=== PATIENT | female | born 2005 | race Caucasian/White ===

== ENCOUNTER 2024-10-15 | Emergency (ER) | payer BC, OTHER, SELFPAY ==
[2024-10-15 00:09] VITALS: BP 146/71
[2024-10-15 00:13] VITALS: BP 112/46
--- NOTE | 2024-10-15 00:55 | ED.GENMED ---
History of Present Illness
General
Chief Complaint: Dizziness
Source: patient and family
Exam Limitations: none
Time Seen by Provider: 10/15/24 00:50
Nursing documentation reviewed up to this point in time: agreed with
History of Present Illness
History of Present Illness:
Pleasant 19-year-old female presents with shortness of breath abdominal pain nausea vomiting and dizziness that started 2 hours prior to arrival. She states that during this timeframe, she had numbness and tingling in her bilateral hands. She
reports that her abdominal pain is still present. It does not radiate. Patient states that the pain is diffuse across her abdomen but does report some upper abdominal pain
Review of Systems
Review of Systems
Allergies reviewed?: Yes
Other source history: family
All Other Systems: ROS reviewed and negative except as documented in HPI and ROS
Constitutional: Reports no symptoms
EENT: Reports no symptoms
Respiratory: Reports no symptoms
Cardiac: Reports no symptoms
ABD/GI: Reports abdominal pain, nausea and vomiting; Denies diarrhea
: Reports no symptoms
Musculoskeletal: Reports no symptoms
Skin: Reports no symptoms
Neurological: Reports no symptoms
Endocrine: Reports no symptoms
Hematologic/Lymphatic: Reports no symptoms
Psychiatric: Reports no symptoms
Phy Exam
General Physical Exam
General Presentation: well appearing and no apparent distress
General Skin: warm and dry
General Habitus: normal
General Mental: alert
General Hydration: appears well hydrated
ENT Exam
ENT Exam: EOMI, pharynx normal, neck supple and normocephalic
Eye Exam
Eye Exam: PERRL, cornea clear and conjunctiva normal
Cardiovascular Exam
Cardiovascular Exam: regular rate/rhythm, no edema, no murmur and normal peripheral pulses
Pulmonary Exam
Pulmonary Exam: lungs clear, no respiratory distress, no rales, no crackles, no rhonchi, no stridor, no wheezing and no cough
Gastrointestinal Exam
Gastrointestinal Exam: normal bowel sounds, soft, no organomegaly, no pulsatile mass and non distended
Palpation: left upper quadrant: Minimal tenderness and right upper quadrant: Minimal tenderness
Neurological Exam
Neurological Exam: alert, oriented x3, no motor deficits and speech normal
Musculoskeletal Exam
Musculoskeletal Exam: full ROM and no edema
Skin Exam
Skin Exam: normal color, warm/dry, no rash and no petechia
Psychiatric Exam
Psychiatric Exam: normal mood/affect
Course
Orders/Labs/Results
Orders:
Orders
10/15/24 00:09
EKG [Electrocardiogram (*1)] Urgent
Reason for Study: Tachycardia
10/15/24 00:10
EKG- Treatment ONCE
10/15/24 00:12
Test Result ONCE
10/15/24 00:51
Complete Blood Count/With Diff Urgent
Comprehensive Metabolic Panel Urgent
HCG, Serum Qualitative Screen Urgent
Lipase Urgent
Comment: ADDED
10/15/24 00:54
HYDROmorphone [Dilaudid] 0.5 mg IV NOW STA
Ondansetron Injectable [Zofran] 4 mg IV NOW STA
10/15/24 00:57
Troponin I Urgent
10/15/24 01:32
Add On- LAB Urgent
Tests Added?: lipase
10/15/24 01:37
CT Abd/pelvis W Iv Cont Urgent
Comment:
Reason For Exam: diffuse abd pain
Abnormal Lab Results
10/15/24
00:51
WBC 11.3 H 10^3/uL
(4.8-10.8)
RBC 5.69 H 10^6/uL
(4.20-5.40)
Hgb 11.4 L g/dL
(12.0-16.0)
Hct 35.7 L %
(37.0-47.0)
MCV 62.7 L fL
(81.0-99.0)
MCH 20.0 L pg
(27.0-31.0)
MCHC 31.9 L g/dL
(33.0-37.0)
RDW 16.2 H %
(11.5-14.5)
Abs Immat Gran (auto) 0.1 H 10^3/uL
(0-0.05)
Absolute Neuts (auto) 9.0 H 10^3/uL
(1.4-6.5)
Immature Gran % 0.6 H %
(0-0.5)
Neutrophils % 79.5 H %
(42.2-75.2)
Lymphocytes % 13.8 L %
(20.5-51.1)
Carbon Dioxide 21 L mmol/L
(22-30)
BUN 20 H mg/dl
(7-17)
Glucose 107 H mg/dl
(70-99)
Calcium 10.9 H mg/dl
(8.4-10.2)
10/15/24 00:51
10/15/24 00:51
Vital Signs
Initial and Last Documented VS:
Initial Vital Signs
Pulse Resp BP Pulse Ox
107 24 146/71 90
10/15/24 00:09 10/15/24 00:09 10/15/24 00:09 10/15/24 00:09
Last Documented Vital Signs
Temp Pulse Resp BP Pulse Ox
98.5 F 74 16 139/97 97
10/15/24 05:58 10/15/24 05:45 10/15/24 05:45 10/15/24 02:32 10/15/24 02:00
*Critical Care Note
Total Time (30-74mins, 75-104mins- exclusive of procedures): Not Applicable
Update Note
Update Note:
CT abdomen and pelvis with IV contrast
IMPRESSION:
Fluid-filled loops of proximal small bowel, measuring up to 2.5 cm, with borderline wall thickening, moderate mesenteric congestion, and small volume free fluid. This may represent an enteritis. The distal small bowel is relatively decompressed.
Although no transition point is seen, cannot exclude partial small bowel obstruction. No pneumatosis or free air.
Right kidney is absent. No left-sided hydronephrosis or nephrolithiasis.
Discussed CAT scan findings with the patient and family. At this time patient is feeling much better. I did discuss the possibility of a small bowel obstruction. Patient wishes to be discharged to home. I discussed return to ER instructions with
patient and family. I feel that they have good understanding of said discharge instructions as well as good understanding of the possible diagnosis of SBO. I feel that they will return as needed.
Patient was able to tolerate liquids. We observed her for several hours. At this point she wishes to be discharged home. She reports no abdominal pain or tenderness at this time.
ED Attending Note
-
Portions of this chart may have been created with voice recognition software.� Occasional wrong word or��sound alike� substitutions may have occurred due to the inherent limitations of voice recognition software.
Discharge Plan
Departure
Patient Disposition: Home (Routine Discharge)
Date of Disposition: 10/15/24
Time of Disposition: 05:40
Patient with high blood pressure during this ER visit?: Yes
Condition: Good
Discharge Problem:
Abdominal pain
Instructions: Abdominal pain in adults - Discharge instructions, BLOOD PRESSURE
Prescriptions:
No Action
No Current Medications
0
Referrals:
Sonido Montes De Oca Jr [Other]
NONE,* [Family Provider] -
Activity Restrictions/Additional Instructions:
It was a pleasure meeting you and taking part in your care. We hope for your continued healing and wellness.
Please read discharge instructions in their entirety. However, they are for general education and may not describe your exact diagnosis at discharge. Information on your ER visit and medical conditions were discussed with you along with appropriate
follow up information...
If indicated, please take your medications as instructed and indicated on discharge paperwork.
Please schedule a follow up appointment as directed. Call to schedule an appointment
Please return to the emergency department with ANY change in, persisting, or worsening of symptoms. If any of your symptoms do not improve, or persist, or become more severe within 6-12 hours, please return to the emergency department for further
care.
Please return to the emergency department if you develop a headache, neck pain/stiffness, fever greater than 100.4F, chest pain, shortness of breath, persistent nausea, vomiting, slurred speech, difficulty walking, numbness/tingling, weakness, signs
of infection or any other symptoms that are worrisome to you.
If you have any questions or concerns please do not hesitate to call the Hospital at or E-mail me directly at [email or web address]
Interventions
Interventions:
*Risk Screen - Suicide Last Done: 10/15/24 00:03
*General Assessment Last Done: 10/15/24 00:03
*Neglect/Abuse Screening Last Done: 10/15/24 02:00
ED- Fall Risk Assessment Last Done: 10/15/24 05:59
*ED COVID-19 Vaccine History Last Done: 10/15/24 00:03
*Nursing Disposition Last Done: 10/15/24 06:00
ED- Neurological Assessment Last Done: 10/15/24 00:53
ED- Cardiac Assessment Last Done: 10/15/24 06:00
ED Swallowing Screen Last Done: 10/15/24 00:52
Discharge Date and Time
Discharge Date/Time: 10/15/24 06:25
Print Language: KAZAKH
[2024-10-15 01:00] LABS: % Basophils 0.4 % (0-2); % Eosinophils 0.5 % (0-6); % Immature Granulocytes 0.6 % (0-0.5); % Lymphocytes 13.8 % (20.5-51.1); % Monocytes 5.2 % (1.7-9.3); % Neutrophils 79.5 % (42.2-75.2); Absolute Basophils 0.1 10^3/uL (0-0.2); Absolute Eosinophils 0.1 10^3/uL (0-0.7); Absolute Immature Granulocytes 0.1 10^3/uL (0-0.05); Absolute Lymphocytes 1.6 10^3/uL (1.2-3.4); Absolute Monocytes 0.6 10^3/uL (0.1-0.6); Hematocrit 35.7 % (37.0-47.0); Hemoglobin 11.4 g/dL (12.0-16.0); Mean Corp Hgb Conc. 31.9 g/dL (33.0-37.0); Mean Corpuscular Volume 62.7 fL (81.0-99.0); Mean Platelet Volume 9.9 fL (7.4-10.4); Nucleated Red Blood Cells % 0 %; Platelet Count 376 10^3/uL (130-400); Red Blood Cell Count 5.69 10^6/uL (4.20-5.40); Red Cell Dist. Width 16.2 % (11.5-14.5); White Blood Cell Count 11.3 10^3/uL (4.8-10.8)
[2024-10-15] MEDS: DILAUDID 0.5 MG IV (01:00)
[2024-10-15] MEDS: ZOFRAN 4 MG IV (01:00)
[2024-10-15 01:16] LABS: ALT (SGPT) 24 U/L (0-35); AST (SGOT) 31 U/L (14-36); Albumin 4.9 g/dl (3.5-5.0); Alkaline Phosphatase 84 U/L (38-126); Blood Urea Nitrogen 20 mg/dl (7-17); Calcium 10.9 mg/dl (8.4-10.2); Carbon Dioxide 21 mmol/L (22-30); Chloride 104 mmol/L (98-107); Glucose 107 mg/dl (70-99); HCG, Serum Qualitative Screen Negative; Potassium 3.8 mmol/L (3.5-5.1); Sodium 138 mmol/L (135-145); Total Bilirubin 0.7 mg/dl (0.2-1.3); eGFR > 60.00
[2024-10-15 01:29] LABS: Troponin I < 0.012 ng/ml
[2024-10-15 02:00] VITALS: BP 124/70
[2024-10-15 02:32] VITALS: BP 139/97
[2024-10-15 02:37] LABS: Lipase 121 U/L (23-300)
== END 2024-10-15 06:25 | disposition home or self-care (01) ==
LOC: EMR
PROVIDERS: EMERGENCY PHYSICIAN Student in an Organized Health Care Education/Training Program
DX: R10.9 Unspecified abdominal pain (principal); R03.0 Elevated blood-pressure reading, without diagnosis of hypertension
CPT/HCPCS: 99285; 96374; 96375; 74177; 80053; 83690; 84484; 84703; 85025; 93005; Q9967

== ENCOUNTER 2025-01-26 09:25 | Inpatient (IN) | payer BC, OTHER, SELFPAY ==
[2025-01-26] VITALS (13 sets, daily range): BP systolic 101–122; BP diastolic 58–78; BMI 23.7
--- NOTE | 2025-01-26 01:36 | EDRN ---
Pt's mother says pt was here in Sep with excruciating lower abd pain and had a CT. Pt was kept overnight for possible diverticulitis however pt felt better in 4 hours so it was not diverticulitis. Pt with hx ovarian cyst. Pain started early
evening and has gotten progressively worse. Pt had chills, nausea and vomiting. NO fever/cough, urinary symptoms, diarrhea/constipation. Last BM today, LMP couple weeks ago
[2025-01-26 01:53] LABS: % Basophils 0.6 % (0-2); % Eosinophils 0.5 % (0-6); % Immature Granulocytes 0.4 % (0-0.5); % Lymphocytes 18.6 % (20.5-51.1); % Monocytes 4.3 % (1.7-9.3); % Neutrophils 75.6 % (42.2-75.2); Absolute Basophils 0.1 10^3/uL (0-0.2); Absolute Lymphocytes 1.5 10^3/uL (1.2-3.4); Absolute Monocytes 0.4 10^3/uL (0.1-0.6); Absolute Neutrophils 6.2 10^3/uL (1.4-6.5); Hematocrit 33.6 % (37.0-47.0); Hemoglobin 11.1 g/dL (12.0-16.0); Mean Corpuscular Hgb 20.8 pg (27.0-31.0); Mean Corpuscular Volume 62.9 fL (81.0-99.0); Nucleated Red Blood Cells % 0 %; Platelet Count 350 10^3/uL (130-400); Red Blood Cell Count 5.34 10^6/uL (4.20-5.40); Red Cell Dist. Width 15.3 % (11.5-14.5); White Blood Cell Count 8.2 10^3/uL (4.8-10.8)
[2025-01-26] MEDS: NSS 1000 IV ×2 (01:57→04:41)
[2025-01-26] MEDS: ZOFRAN 4 MG IV ×3 (01:57→07:04)
[2025-01-26 02:08] LABS: HCG, Serum Qualitative Screen Negative
[2025-01-26 02:11] LABS: ALT (SGPT) 17 U/L (0-35); AST (SGOT) 29 U/L (14-36); Albumin 5.3 g/dl (3.5-5.0); Alkaline Phosphatase 65 U/L (38-126); Blood Urea Nitrogen 15 mg/dl (7-17); Calcium 10.8 mg/dl (8.4-10.2); Carbon Dioxide 19 mmol/L (22-30); Chloride 108 mmol/L (98-107); Estimated Creatinine Clearance 81 ml/min; Glucose 95 mg/dl (70-99); Lipase 109 U/L (23-300); Potassium 4.1 mmol/L (3.5-5.1); Sodium 142 mmol/L (135-145); Total Bilirubin 0.8 mg/dl (0.2-1.3); Total Protein 8.3 g/dl (6.3-8.2); eGFR > 60.00
--- NOTE | 2025-01-26 03:06 | EDRN ---
Pt complained of tingling in her fingers/hands. Pt hyperventilating, coached on breathing in through her nose and out through her mouth to slow her breathing.
[2025-01-26] MEDS: TORADOL 30 MG IV (03:41)
[2025-01-26] MEDS: DILAUDID 0.5 MG IV ×2 (04:39→07:04)
--- NOTE | 2025-01-26 06:16 | ED.GENMED ---
History of Present Illness
General
Chief Complaint: Abdominal Pain
Source: patient, family (Mother and father at bedside) and previous hospital records (ED visit for somewhat similar abdominal pain complaint in September this year)
Exam Limitations: none
Time Seen by Provider: 01/26/25 04:09
Nursing documentation reviewed up to this point in time: agreed with
History of Present Illness
History of Present Illness:
This is a 19-year-old female with history of Wilms tumor status post right nephrectomy as well as partial left nephrectomy. History of complex ovarian cyst requiring removal in the past.
She takes no medicines on a daily basis.
Last menstrual period 2 weeks ago, normal and on time.
She presents with somewhat abrupt onset of generalized mid abdominal pain that began approximately 2 hours prior to arrival, persistent, crampy in nature accompanied with nausea, dry heaves. She denies diarrhea and states she passed a normal bowel
movement earlier this evening.
She presented to this ED with very similar abdominal pain September of this year. CAT scan at that time showed enteritis but concern for small bowel obstruction. Abdominal pain resolved during ED evaluation and she was discharged to home without
return of pain until tonight.
Past History
Past History
ED Past Medical History: Cancer (Wilms tumor status post right nephrectomy, left partial nephrectomy) and Other (Ovarian cyst)
ED Past Surgical History: Gynecological (Ovarian cyst removal), Tonsilectomy and Urological (Right nephrectomy for Wilms tumor as well as left partial nephrectomy.)
Social History
Tobacco: Non-smoker
Alcohol: None
Drug: None
Personal: Single
Living: with family
Employment: Student
Family History
Family History: Other (Noncontributory)
Phy Exam
Physical Exam
Physical Exam:
GENERAL: 19-year-old female appears her stated age, awake and alert, pleasant, appears in no acute distress. Parents are accompanying.
EYE: anicteric
NECK: Supple, nontender, no meningismus, no significant adenopathy.
ENT: oral mucosa is moist. No rhinorrhea.
CARDIAC: Regular rate and rhythm. no murmur.
LUNGS: Clear breath sounds bilaterally, no acute respiratory distress, no wheezes/rales/rhonchi
ABDOMEN: Soft, nondistended, moderate tenderness generalized to the upper abdomen, right upper quadrant more so than left upper quadrant, mild tenderness mid abdomen. No appreciable tenderness to the lower abdomen. No r/g, no cvat. Hypoactive
bowel sounds.
NEUROLOGICAL: Alert and oriented x3, no focal neuro deficits.
SKIN: Warm and dry, normal color, skin intact. No rash.
MUSCULOSKELETAL: No C/C/E. peripheral pulses are full and equal b/l. No palpable tenderness.
PSYCH: Normal and appropriate interaction.
Course
Orders/Labs/Results
Orders:
Orders
01/26/25 01:38
IV Insert/Care/Rem.- Treatment PRN
01/26/25 01:39
Test Result ONCE
01/26/25 01:46
Complete Blood Count/With Diff Urgent
Comprehensive Metabolic Panel Urgent
HCG, Serum Qualitative Screen Urgent
Comment: Notify provider if positive test present
Lipase Urgent
01/26/25 01:54
Ondansetron Injectable [Zofran] 4 mg .ROUTE .STK-MED ONE
01/26/25 01:56
0.9% Sodium Chloride 1000 ml [Nss] 1,000 ml IV BOLUS
Ondansetron Injectable [Zofran] 4 mg IV NOW STA
01/26/25 02:50
Ondansetron Injectable [Zofran] 4 mg .ROUTE .STK-MED ONE
01/26/25 02:52
Ondansetron Injectable [Zofran] 4 mg IV NOW STA
01/26/25 03:32
Ketorolac [Toradol] 30 mg .ROUTE .STK-MED ONE
01/26/25 03:41
Ketorolac [Toradol] 30 mg IV NOW STA
01/26/25 04:29
0.9% Sodium Chloride 1000 ml [Nss] 1,000 ml IV 250 mls/hr
HYDROmorphone [Dilaudid] 0.5 mg IV NOW STA
01/26/25 04:32
CT Abd/pelvis W Iv Cont Urgent
Comment:
Reason For Exam: gen mid to upper abd pain, N/V
01/26/25 06:04
Urinalysis Reflex To Culture Urgent
Date Specimen was Collected: 01/26/25
Time Specimen was Collected: 06:02
Urine Microscopic Reflex Cult Urgent
Abnormal Lab Results
01/26/25 01/26/25
01:46 06:04
Hgb 11.1 L g/dL
(12.0-16.0)
Hct 33.6 L %
(37.0-47.0)
MCV 62.9 L fL
(81.0-99.0)
MCH 20.8 L pg
(27.0-31.0)
RDW 15.3 H %
(11.5-14.5)
Neutrophils % 75.6 H %
(42.2-75.2)
Lymphocytes % 18.6 L %
(20.5-51.1)
Chloride 108 H mmol/L
(98-107)
Carbon Dioxide 19 L mmol/L
(22-30)
Calcium 10.8 H mg/dl
(8.4-10.2)
Total Protein 8.3 H g/dl
(6.3-8.2)
Albumin 5.3 H g/dl
(3.5-5.0)
Urine Ketones 3+ A
(Negative)
Urine Albumin (Reflex) 1+ A
(Neg - Trace)
01/26/25 01:46
01/26/25 01:46
Vital Signs
Initial and Last Documented VS:
Initial Vital Signs
Temp Pulse Resp BP Pulse Ox
97.8 F 82 22 109/78 100
01/26/25 00:50 01/26/25 00:50 01/26/25 00:50 01/26/25 00:50 01/26/25 00:50
Last Documented Vital Signs
Temp Pulse Resp BP Pulse Ox
98.6 F 81 13 105/66 100
01/26/25 06:00 01/26/25 06:01 01/26/25 06:01 01/26/25 06:00 01/26/25 01:18
MDM/Problems Addressed
Differential Diagnosis Includes:
Concern for small bowel obstruction, gastroenteritis, cholecystitis, pancreatitis. Ovarian cyst is less likely.
Patient is much more comfortable after IV dose of Zofran and Toradol. She does continue with moderate tenderness to palpation primarily the upper abdomen. Will medicate for pain with IV Dilaudid and will check CT abdomen and pelvis.
Labs are unremarkable.
Chronic conditions affecting care: Previous abdomnial surgery (History of ovarian cyst removal as well as nephrectomy for Wilms tumor.) and Cancer (History of Wilms tumor status post right nephrectomy and partial left nephrectomy.)
*Radiology
Radiology exam reviewed: radiology read reviewed
*Pulse Oximetry
Patient hypoxic: no
*Critical Care Note
Total Time (30-74mins, 75-104mins- exclusive of procedures): Not Applicable
Update Note
Update Note:
06:55
Patient continues with moderate abdominal pain, crampy in nature. Nausea is now returning as well.
CAT scan shows small bowel obstruction with transition point in the right lower quadrant.
Will continue IV fluids, continue antiemetics and pain medications and will admit to hospitalist service.
ED Attending Note
-
Portions of this chart may have been created with voice recognition software.� Occasional wrong word or��sound alike� substitutions may have occurred due to the inherent limitations of voice recognition software.
Discharge Plan
Departure
Patient Disposition: Admit
Date of Disposition: 01/26/25
Time of Disposition: 06:52
Admit to: Med/Surg
Admit to doctor: hospitalist
Presentation/result/management discussed w/ accepting MD/DO: Hospitalist
Discharge Problem:
Small bowel obstruction
Prescriptions:
No Action
No Current Medications
0
Referrals:
UNKNOWN - PT DOES,NOT KNOW [Family Provider]
Interventions
Interventions:
*Risk Screen - Suicide Last Done: 01/26/25 00:50
*General Assessment Last Done: 01/26/25 01:35
*Neglect/Abuse Screening Last Done: 01/26/25 01:35
*ED- Fall Risk Assessment Last Done: 01/26/25 02:02
RF-Gnkwxg-Hjqftomzus Assessment Last Done: 01/26/25 02:02
Discharge Date and Time
Print Language: LIBERIAN
[2025-01-26 06:23] LABS: Urine Albumin 1+ (Neg - Trace); Urine Bilirubin Negative (Negative); Urine Character Clear (Clear); Urine Color Yellow; Urine Glucose Negative (Negative); Urine Ketone 3+ (Negative); Urine Leukocyte Negative (Negative); Urine Nitrite Negative (Negative); Urine Occult Blood Negative (Negative); Urine Urobilinogen Negative (Neg - 1+)
[2025-01-26 06:33] LABS: Urine Squamous Cell >30 /LPF (Few)
[2025-01-26 06:34] LABS: Urine Red Blood Cell None Seen /HPF (0-2); Urine White Cell 0-2 /HPF (0-5)
[2025-01-26 07:56] LABS: Iron 90 ug/dl (37-170)
--- NOTE | 2025-01-26 07:56 | HPS.HSE ---
Family Physician
-
Family Physician: NOT KNOW UNKNOWN - PT DOES
Chief Complaint
-
abd pain
History of Present Illness
19yo F with thalassemia, Hx of R nephrectomy 2/2 Wilms tumor @2007, ovarian cyst removal in 2018 came with abdominal pain, nausea and vomiting for 1 day, found SBO on CT. When seen in ED - no vomiting, abdomen not excessively tender, pain well
controlled with pain meds.
Medical History
Past Medical History
Past Medical History: Reports Other
Additional Past Medical History:
None
Past Surgical History: Reports Other
Additional Past Surgical History:
as above
Social History
Alcohol: None
Drug: None
Family History
Family History: Not pertinent
Allergies / Home Medications
Allergies reflects when Allergies were last updated in [employer].
Home Medications with original date entered in [employer]
Allergy/Medication List:
Allergies
Allergy/AdvReac Type Severity Reaction Status Date / Time
adhesive Allergy Unknown Verified 01/26/25 00:58
chlorprep Allergy Rash Uncoded 01/26/25 00:58
platelets Allergy Unknown Uncoded 01/26/25 00:58
Home Medications
No Meds [No Current Medications] 01/26/25
Review of Systems
-
History Source: Patient
A 12 point ROS was completed and negative except as noted: Yes
Abdomen/GI: Reports See HPI
Physical Exam
Vital Signs
Vital Signs
Temp Pulse Resp BP Pulse Ox
98.6 F 78 15 109/59 100
01/26/25 06:00 01/26/25 07:00 01/26/25 07:00 01/26/25 07:00 01/26/25 01:18
Physical Exam
General: Well Developed, No Apparent Distress and Comfortable
HEENT: NormoCephalic, Anicteric and Moist mucous membranes
Cardiac: S1/S2, Regular Rhythm and Tachycardia
GI: Soft, Non Tender and Non Distended; No Normal Bowel Sounds
Genito-urinary: No costovertebral tender
Skin: Warm; No Rash or Jaundice
Neuro: Awake, Alert, Oriented and AO x 3
Psych: Calm
Laboratory Results
-
01/26/25 01:46
01/26/25 01:46
Laboratory Results
Total Bilirubin 0.8 mg/dl (0.2-1.3) 01/26/25:46
AST 29 U/L (14-36) 01/26/25:46
ALT 17 U/L (0-35) 01/26/25 01:46
Alkaline Phosphatase 65 U/L (38-126) 01/26/25 01:46
Lipase 109 U/L (23-300) 01/26/25 01:46
Data Reviewed
-
CT Scan: Report Reviewed by me
Lab Data: Labs Reviewed by me
Impression/Plan
-
A/P:
#SBO
NPO and advance diet as tolerated, IVF while NPO
[facility] consult - defer need in NG to them as patient stopped vomiting at the time of admission and is ot in distress
Antiemetics
#Thalassemia
check iron panel
#Intrahepatic biliary duct dilation
outpatient GI: wide differential from physiologic to PBC, PSC - needs outpatient w/u
#complex ovarian cyst
#Physiologic fluid in pelvis 2/2 ruptured luteal cyst
[facility] as ooutpatient, US advised
#Hypercalcemia
most likely dehydration 2/2 vomiting
follow Ca
check PTH
DVT ppx SCDs
Full code
I have spent at least 79min reviewing chart, test results, communication with consultants and providing direct patient care
[2025-01-26 08:06] LABS: Percent Saturation 21 % (20-50); Total Iron Binding Capacity 423 ug/dl (265-497)
[2025-01-26 08:32] LABS: Ferritin 15.7 ng/ml (6.24-137)
[2025-01-26] MEDS: D5/0.45%NACL 1000 IV ×2 (10:47→19:29)
--- NOTE | 2025-01-26 11:53 | CON.GS ---
Addendum entered and electronically signed by Kalyan Palacios MD 01/26/25 12:51:
I saw and examined the patient independently.
The Gold Reclaimer's note was reviewed and I agree with the note, assessment and plan except where noted below.
Comment: This is a 19-year-old female with a history of a Wilms tumor status post right nephrectomy through a large upper transverse incision, ovarian cysts managed with a lap to open procedure in 2018 who presents with abdominal pain, nausea and
vomiting in the history of prior small bowel obstructions found to have similar on her CT scan without oral contrast. Still without return of bowel function but clinically stable, exam benign. Will manage her small bowel obstruction nonoperatively
for now.
N.p.o., IV fluids, replete electrolytes as needed.
Place NG tube if she has emesis.
Out of bed/ambulate
If still no return of bowel function we will plan for a small bowel follow-through on Tuesday.
All questions answered, patient and mother who is at bedside agreeable to plan of care above.
General surgery will continue to follow
Original Note:
Consultation
-
Date/Time Consultation Requested: 01/26/25 0728
Date/Time Consultation Performed: 01/26/25 1100
Requesting Provider: David
Performing Provider: Zhao Palacios
Reason for Consultation: SBO
Medical History
-
Chief Complaint: abdominal pain
History of Present Illness:
Ms Farley is a 19 yo female with a h/o Wilms tumor managed with right nephrectomy in 2004 and complex ovarian cysts managed operatively with a lap to open procedure in 2018 (LMP 2 weeks ago) who presented through the ED with cramping abdominal pain
with nausea and vomiting. She notes that she had a normal dinner last night but then vomited up this meal. She denies active nausea currently but abdominal pain does persist to the lower abdomen with tenderness and mild distention on exam. She
preented with similar but more mild symptoms in September with ?pSBO vs enteritis on Ct imaging at that time. She denies fevers or chills. She has not passed flatus since onset of pain.
Past Medical History
Past Medical History: Cancer (Wilms tumor managed surgically 2007) and Other (Thalassemia, SBO 09/2024)
Past Surgical History: Gynecological (Lap to open procedure for BL ovarian cysts 2017), Tonsilectomy and Urological (Right nephrectomy 2007)
Social History
Tobacco: Non-Smoker
Alcohol: None
Drug: None
Living: With Family
Family History
Family History: Reviewed & Not Pertinent
Allergies / Home Medications
Allergy/AdvReac Type Severity Reaction Status Date / Time
adhesive Allergy Rash Verified 01/26/25 09:42
chlorhexidine (From Allergy Rash Verified 01/26/25 09:41
ChloraPrep Clear)
isopropyl alcohol (From Allergy Rash Verified 01/26/25 09:41
ChloraPrep Clear)
platelets Allergy Unknown Uncoded 01/26/25 00:58
�Medication �Instructions �Recorded �Confirmed �Type
No Meds [No Current Medications] 01/26/25 01/26/25 History
Review of Systems
-
History Source: Patient and Family (mother at bedside)
All other systems: Negative unless noted
A 10 point review of systems was completed, and was negative except as per HPI.
Physical Exam
Vital Signs
Temp Pulse Resp BP Pulse Ox
98.0 F 111 18 119/76 98
01/26/25 09:55 01/26/25 09:55 01/26/25 09:55 01/26/25 09:55 01/26/25 09:55
01/25/25 01/26/25 01/27/25
06:59 06:59 06:59
Actual Weight 55 kg 55.111 kg
Body Mass Index (BMI) 23.7
Lab Results
01/26/25 01:46
01/26/25 01:46
WBC 8.2 10^3/uL (4.8-10.8) 01/26/25 01:46
Hgb 11.1 g/dL (12.0-16.0) L 01/26/25 01:46
Hct 33.6 % (37.0-47.0) L 01/26/25 01:46
Plt Count 350 10^3/uL (130-400) 01/26/25 01:46
Abs Immat Gran (auto) 0.0 10^3/uL (0-0.05) 01/26/25 01:46
Neutrophils % 75.6 % (42.2-75.2) H 01/26/25 01:46
Physical Exam
General: Well Developed and Well Nourished
HEENT: Moist Mucous Membranes
Respiratory: Non Labored Respirations
GI: Soft, Tender (moderate to right lower abd) and Distended (mild)
Skin: Warm and Dry
Neuro: Awake, Alert and AO x 3
Psych: Calm
Data Reviewed
-
CT Scan: Image Personally Visualized and interpreted, Report Reviewed by me, Discussed with Physician, Discussed with Patient and Discussed with Family
Labs: Labs Reviewed by me, Discussed with Physician, Discussed with Patient and Discussed with Family
Old Records: Reviewed
Assessment / Plan
-
Ms Farley is a 19 yo female with a h/o Wilms tumor managed with right nephrectomy in 2004 and complex ovarian cysts managed operatively with a lap to open procedure in 2018 (LMP 2 weeks ago), and ?pSBO 09/2024 who presented through the ED with
cramping abdominal pain with nausea and vomiting since last night. CT imaging without PO contrast reviewed with findings compatible with adhesive SBO with transition point in the distal ileum. Ovarian cysts noted. AFVSS. Pain still present but not
as severe with resolution of nausea.
Plan:
--Will follow with nonoperative measures for improvement at this time
--Continue NPO for bowel rest
--May need NGT placement if n/v recurs
--Analgesics/antiemetics prn
--OOB/Ambulate
--May require contrast study later this admission if symptoms don't continue to improve, will hold off for now
--- NOTE | 2025-01-26 14:47 | CM ---
CM met with pt and mother/Tracey bedside
Pt slept through meeting
Pt resides with her parents
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
She is primarily insured through her father's plan, has [address] as secondary
Pt is indep, no DMEs
PCP- none, pt follows with numerous speciality physicians including [facility] onc, cardio, and fertility
Rx- Sindy Oakes
Pt with SBO with non-operative management currently
Pt on precautions for hx VRE
Discharge Disposition- anticipate home no needs
--- NOTE | 2025-01-26 15:56 | PTCARENOTE ---
Pt admitted to room 2137 from ED with SBO. Pt able to walk into room unassisted. Pt has mother present. Admission and assessment done. Vitals stable. Pt with no N/V and no c/o of pain. New IV site placed. IVF hung- pt instructed to ring for
assistance.
--- NOTE | 2025-01-26 23:11 | PTCARENOTE ---
Patient denies nausea. Claims to have flatus pass more than once.
[2025-01-27] MEDS: D5/0.45%NACL 1000 IV (02:49)
[2025-01-27 06:58] LABS: Ionized Calcium 1.26 mMOL/L (1.15-1.33)
[2025-01-27 07:00] VITALS: BP 109/60
[2025-01-27 08:31] LABS: Hematocrit 27.7 % (37.0-47.0); Hemoglobin 8.8 g/dL (12.0-16.0); Mean Corp Hgb Conc. 31.8 g/dL (33.0-37.0); Mean Corpuscular Volume 66.1 fL (81.0-99.0); Red Blood Cell Count 4.19 10^6/uL (4.20-5.40); Red Cell Dist. Width 15.7 % (11.5-14.5)
[2025-01-27 08:44] LABS: ALT (SGPT) 10 U/L (0-35); AST (SGOT) 16 U/L (14-36); Albumin 3.5 g/dl (3.5-5.0); Alkaline Phosphatase 44 U/L (38-126); Blood Urea Nitrogen 7 mg/dl (7-17); Calcium 8.8 mg/dl (8.4-10.2); Carbon Dioxide 24 mmol/L (22-30); Chloride 114 mmol/L (98-107); Estimated Creatinine Clearance 81 ml/min; Glucose 94 mg/dl (70-99); Potassium 3.9 mmol/L (3.5-5.1); Sodium 141 mmol/L (135-145); Total Bilirubin 0.5 mg/dl (0.2-1.3); Total Protein 5.6 g/dl (6.3-8.2); eGFR > 60.00
[2025-01-27 08:45] LABS: % Basophils 0.8 % (0-2); % Eosinophils 2.6 % (0-6); % Immature Granulocytes 0.4 % (0-0.5); % Lymphocytes 51.6 % (20.5-51.1); % Monocytes 6.3 % (1.7-9.3); % Neutrophils 38.3 % (42.2-75.2); Absolute Eosinophils 0.1 10^3/uL (0-0.7); Absolute Lymphocytes 2.6 10^3/uL (1.2-3.4); Absolute Monocytes 0.3 10^3/uL (0.1-0.6); Absolute Neutrophils 1.9 10^3/uL (1.4-6.5); Nucleated Red Blood Cells % 0 %; Platelet Count 261 10^3/uL (130-400)
[2025-01-27 08:48] LABS: Acanthocytes Slight; Anisocytosis Slight; Hypochromasia 2+; Microcytosis 1+; Normal RBC Morphology No; Ovalocytes Slight
[2025-01-27 08:49] LABS: Tear Drop Red Blood Cells FEW
--- NOTE | 2025-01-27 09:10 | W.PN.GS2 ---
Today's Communication / Plan
-
Trial of clears
Assessment / Plan
-
19 yo female with a h/o Wilms tumor status post right nephrectomy through a large upper transverse incision, ovarian cysts managed with a lap to open procedure in 2018 who presents with abdominal pain, nausea and vomiting in the history of prior
small bowel obstructions found to have similar on her CT scan without oral contrast.
AFVSS
Anemia noted, unclear etiology.
Passing some flatus
--Trial of clears
--Anemic work up as per primary team
--Tentative SBFT tomorrow if does not continue to improve
Subjective Data
-
Date of Service: January 27, 2025
Patient seen and examined at bedside with Dr. Palacios. Mother at bedside. Denies n/v. Passing a little flatus. No BM's yet. LMP was 2 weeks ago and not overly heavy. No active bleeding has been noted.
Objective Data
-
Intake and Output
01/26/25 01/27/25 01/28/25
06:59 06:59 06:59
Intake Total 2300 / 2300
Balance 2300 / 2300
Intake:
IV fluids (Total) 0 / 2300
Other:
Number of approximated MODERATE 3
amounts of urine
Vital Signs
Temp Pulse Resp BP Pulse Ox
98.2 F 50 16 109/60 100
01/27/25 07:00 01/27/25 07:00 01/27/25 07:00 01/27/25 07:00 01/27/25 07:00
Lab Results
01/27/25 07:48
01/27/25 07:48
Calcium 8.8 mg/dl (8.4-10.2) D 01/27/25 07:48
Total Bilirubin 0.5 mg/dl (0.2-1.3) 01/27/25 07:48
AST 16 U/L (14-36) 01/27/25 07:48
ALT 10 U/L (0-35) 01/27/25 07:48
Alkaline Phosphatase 44 U/L (38-126) 01/27/25 07:48
Total Protein 5.6 g/dl (6.3-8.2) L D 01/27/25 07:48
Albumin 3.5 g/dl (3.5-5.0) D 01/27/25 07:48
Physical Exam
-
NAD
ABD soft, mildly distended, mild tenderness to the right
[2025-01-27 09:17] LABS: Reticulocyte Count 1.7 % (0.4-2.8)
--- NOTE | 2025-01-27 09:51 | W.PN.HOSP.TC ---
Addendum entered and electronically signed by Bobby Hernandez MD 01/27/25 10:10:
borderline iron studies - might be some component JOSEFINA, but it does not explain acute change
Original Note:
Today's Communication/Plan
-
See PN
Assessment / Plan
Assessment / Plan
19yo F with thalassemia, Hx of R nephrectomy and partial R nephrotomy 2/2 Wilms tumor @2007, ovarian cyst removal in 2018 came with abdominal pain, nausea and vomiting for 1 day, found SBO on CT. later started to resolve, abdominal pain subsided,
but patient developed anemia
A/P:
#SBO
NPO and advance diet as tolerated, IVF while NPO
[facility] consult - defer need in NG to them as patient stopped vomiting at the time of admission and is ot in distress
Antiemetics
#Thalassemia
#Acute anemia
Patient with no new or worsening abdominal tenderness, no periotenal signs, no c/o hematuria or blood in stool, black stools, not on her periods, no hemoptysis, normal bilirubin, no compensatory tachycaria and no hypotension
As per discussion with [facility] - reasonable to watch HGB, as can be 2/2 rehydration hemodilution
Obtain prior records from [facility]
check LDH, haptoglobin, retics,blood parasite screen, but normal bili indicates absence of significant hemolysis
Hematology consult
serial H&H
iron panel normal
#Intrahepatic biliary duct dilation
outpatient GI: wide differential from physiologic to PBC, PSC - needs outpatient w/u
#complex ovarian cyst
#Physiologic fluid in pelvis 2/2 ruptured luteal cyst
[employer] as outpatient, US advised
#Hypercalcemia
most likely dehydration 2/2 vomiting, rsolved with IVF
check PTH
DVT ppx SCDs
Full code
I have spent at least 59min reviewing chart, test results, communication with consultants and providing direct patient care
Anticipated Discharge: 24 - 48 hours
Subjective/Interval History
-
Date of Service: January 27, 2025
Objective Data
-
Labs:
Laboratory Results
01/27/25 01/27/25 01/27/25
06:37 07:48 12:00
WBC Cancelled 5.0
Hgb Cancelled 8.8 L D Pending
Hct Cancelled 27.7 L Pending
Plt Count Cancelled 261 D
Sodium Cancelled 141
Potassium Cancelled 3.9
Chloride Cancelled 114 H
Carbon Dioxide Cancelled 24
BUN Cancelled 7
Creatinine Cancelled 0.8
Glucose Cancelled 94
Calcium Cancelled 8.8 D
Total Bilirubin Cancelled 0.5
AST Cancelled 16
ALT Cancelled 10
Alkaline Phosphatase Cancelled 44
01/27/25
20:00
WBC
Hgb Pending
Hct Pending
Plt Count
Sodium
Potassium
Chloride
Carbon Dioxide
BUN
Creatinine
Glucose
Calcium
Total Bilirubin
AST
ALT
Alkaline Phosphatase
Vital Signs:
Vital Signs
Temp Pulse Resp BP Pulse Ox
98.2 F 50 16 109/60 100
01/27/25 07:00 01/27/25 07:00 01/27/25 07:00 01/27/25 07:00 01/27/25 07:00
I&O
01/26/25 01/27/25 01/28/25
06:59 06:59 06:59
Intake Total 2299 / 2299
Balance 2299
Review of Systems
-
History Source: Patient
All other systems: Reviewed and negative
Physical Exam
-
General: No Apparent Distress
HEENT: Normocephalic and Other (pink conjuctiva)
Respiratory: Clear to Auscultation
Cardiac: Regular Rhythm
GI: Soft, Nontender, Nondistended and Normal Bowel Sounds
Musculoskeletal: No Clubbing, No Cyanosis and No Edema
Neuro: Awake, Alert, Oriented and AO x 3
Psych: Calm
[2025-01-27] MEDS: D5/0.45%NACL IV (10:22)
[2025-01-27 10:49] LABS: Folate 10.2 ng/ml (2.76-20); Vitamin B12 384 pg/ml (239-931)
[2025-01-27 10:57] LABS: LDH 125 U/L (120-246)
[2025-01-27 11:36] LABS: Ferritin 14.4 ng/ml (6.24-137)
--- NOTE | 2025-01-27 11:46 | CON.ONC ---
Consultation
-
Date Consultation Requested: 01/27/25
Date Consultation Performed: 01/27/25
Requesting Provider: Dr. Hernandez
Performing Provider: Barrie Mooney MD
Reason for Consultation: thalassemia minor
Impression
Impression
SBO
microcytic anemia - thalassemia minor - w/ possible component of mild iron deficiency
Plan
Plan
1. Microcytic anemia. The patient has a h/o thalassemia minor. She is unaware of her baseline hemoglobin. On presentation her hemoglobin was in the 11g/dl range, and has dropped to 8.8g/dl today. This drop may be secondary to hemodilution, w/ IVF
hydration. Her baseline hemoglobin may be closer to this range. She is asymptomatic. Her iron levels are also borderline low, indicating a possible component of concurrent iron deficiency. W/ h/o thalassemia, would hold off w/ IV iron repletion at
this time. With onging bowel issues, would check stools for occult blood. Follow CBC.
Will continue to follow with you.
Patient History
History of Present Illness
19y/o female seen in hematology consultation regarding h/o microcytic anemia in the context of thalassemia minor.
The patient notes she was diagnosed w/ thalassemia many years ago while a patient at [facility]. She has a h/o Wilms tumor, which was diagnosed at age 2. She was treated w/ chemotherapy for 9 months, prior to surgery, w/ right nephrectomy and partial left
nephrectomy. She also had another abdominal surgery to manage ovarian cysts in 2017.
In September 2024, she was admitted to [facility] w/ SBO, thought to be secondary to adhesions/ scarring from prior surgeries. She was managed conservatively w/ resolution.
She now presents w/ similar symptoms - abdomnial pain w/ CT imaging revealing recurrent SBO. She is again being managed conservatively w/ bowel rest and IVF.
CBC on presentation revealed total WBC 8200, hemoglobin 11.1g/dl, and platelet 350,000. F/u CBC this am, after being on IVF for the past 36 hours revealed hemoglobin drop to 8.8g/dl. MCV is low at 66, whore it chronically runs. Iron studies were
evaluated revealing normal total iron, iron % saturation. Ferritin was low normal at 14.4.
Clinically, she feels decent today. No SOB, chest pain, palpitations. Her abdominal symptoms have improved. No nausea/ vomiting, blood in her stools. She denies a h/o heavy menses.
Past-Medical/Surgical History
PMH:
thalassemia minor -- beta?
Wilms tumor - s/p chemotherapy/ surgery/ radiation - [facility]
ovarianc cysts
recurrent SBO
PSH:
s/p extensive surgery for Wilms tumor - at age 2 - right nephrectomy / partial left nephrectomy
s/p ex lap converted to open procedure for ovarian cysts 2017
SH:
No tobacco, no significant ETOH
FH:
patient's mother and grandmother both have thalassemia trait
patient's mother required transfusion during
Allergies: chlorhexidine, isopropyl alcohol
Patient Medication
�Medication �Instructions �Recorded �Confirmed �Last Taken �Type
No Meds [No Current Medications] 01/26/25 01/26/25 Unknown History
Active Medications
Generic Name Dose Route Start Last Admin
Trade Name Freq PRN Reason Stop Dose Admin
Bisacodyl 10 mg 01/26/25 09:33
Bisacodyl 10 Mg Rectal Suppository RECTAL 02/23/25 09:32
Q83PIHC PRN
constipation
Morphine Sulfate 2 mg 01/26/25 09:33
Morphine 2 Mg/Ml Syringe IV 02/09/25 09:32
Q4HPRN PRN
moderate-severe pain
Ondansetron HCl 4 mg 01/26/25 09:33
Ondansetron 4 Mg/2 Ml Vial IV 02/23/25 09:32
Q8HPRN PRN
NAUSEA/VOMITING
Polyethylene Glycol 17 grams 01/26/25 09:33
Polyethylene Glycol Powder 17 Grams Packet PO 02/23/25 09:32
DAILYPRN PRN
constipation
Senna/Docusate Sodium 1 tablet 01/26/25 09:33
Docusate W/Senna (Viji-Colace) Tablet PO 02/23/25 09:32
BIDPRN PRN
constipation
Sodium Chloride 0 flush 01/26/25 10:00
Sodium Chloride 0.9% (Flush) Syringe IV 02/23/25 09:59
PER PROTOCOL HEBERT
Review of Systems
-
A ROS was performed w/ pertinent findings as per HPI.
Physical Exam
-
General: Well Developed and No Apparent Distress
HEENT: Negative Jaundice
Cardiology: Normal Sinus Rhythm
Pulmonary: Clear
GI: Soft
Extremities: No C/C/E
Neurology: Non Focal
Labs
Lab Results
WBC 5.0 10^3/uL (4.8-10.8) 01/27/25 07:48
RBC 4.19 10^6/uL (4.20-5.40) L 01/27/25 07:48
Hgb 8.8 g/dL (12.0-16.0) L D 01/27/25 07:48
Hct 27.7 % (37.0-47.0) L 01/27/25 07:48
MCV 66.1 fL (81.0-99.0) L 01/27/25 07:48
MCH 21.0 pg (27.0-31.0) L 01/27/25 07:48
MCHC 31.8 g/dL (33.0-37.0) L 01/27/25 07:48
RDW 15.7 % (11.5-14.5) H 01/27/25 07:48
Plt Count 261 10^3/uL (130-400) D 01/27/25 07:48
MPV 10.0 fL (7.4-10.4) 01/27/25 07:48
Abs Immat Gran (auto) 0.0 10^3/uL (0-0.05) 01/27/25 07:48
Absolute Neuts (auto) 1.9 10^3/uL (1.4-6.5) 01/27/25 07:48
Absolute Lymphs (auto) 2.6 10^3/uL (1.2-3.4) 01/27/25 07:48
Absolute Monos (auto) 0.3 10^3/uL (0.1-0.6) 01/27/25 07:48
Absolute Eos (auto) 0.1 10^3/uL (0-0.7) 01/27/25 07:48
Absolute Basos (auto) 0.0 10^3/uL (0-0.2) 01/27/25 07:48
Immature Gran % 0.4 % (0-0.5) 01/27/25 07:48
Neutrophils % 38.3 % (42.2-75.2) L 01/27/25 07:48
Lymphocytes % 51.6 % (20.5-51.1) H 01/27/25 07:48
Monocytes % 6.3 % (1.7-9.3) 01/27/25 07:48
Eosinophils % 2.6 % (0-6) 01/27/25 07:48
Basophils % 0.8 % (0-2) 01/27/25 07:48
Creatinine 0.8 mg/dL (0.6-1.0) 01/27/25 07:48
Vital Signs
Vital Signs
Temp Pulse Resp BP Pulse Ox
98.2 F 50 16 109/60 100
01/27/25 07:00 01/27/25 07:00 01/27/25 07:00 01/27/25 07:00 01/27/25 07:00
[2025-01-27 12:47] LABS: Hemoglobin 8.8 g/dL (12.0-16.0)
--- NOTE | 2025-01-27 14:50 | W.PN.UPDATE ---
Update Note
Progress Note Update
Patient remains asymptomatic, H&H stable, tolerating liquids. COnt to follow H&H and check FOBT - will discuss with RN
[2025-01-27 15:00] VITALS: BP 120/64
[2025-01-27] MEDS: TYLENOL 650 MG PO (19:33)
[2025-01-27 20:21] LABS: Hematocrit 30.3 % (37.0-47.0); Hemoglobin 9.8 g/dL (12.0-16.0)
[2025-01-27 23:15] VITALS: BP 110/60
[2025-01-28 05:43] LABS: % Basophils 0.8 % (0-2); % Eosinophils 2.6 % (0-6); % Immature Granulocytes 0.2 % (0-0.5); % Lymphocytes 44.4 % (20.5-51.1); % Monocytes 7.6 % (1.7-9.3); % Neutrophils 44.4 % (42.2-75.2); Absolute Basophils 0.1 10^3/uL (0-0.2); Absolute Eosinophils 0.2 10^3/uL (0-0.7); Absolute Lymphocytes 2.9 10^3/uL (1.2-3.4); Absolute Monocytes 0.5 10^3/uL (0.1-0.6); Absolute Neutrophils 2.9 10^3/uL (1.4-6.5); Hematocrit 27.3 % (37.0-47.0); Hemoglobin 8.6 g/dL (12.0-16.0); Mean Corp Hgb Conc. 31.5 g/dL (33.0-37.0); Mean Corpuscular Hgb 20.7 pg (27.0-31.0); Mean Corpuscular Volume 65.8 fL (81.0-99.0); Mean Platelet Volume 10.2 fL (7.4-10.4); Nucleated Red Blood Cells % 0 %; Platelet Count 263 10^3/uL (130-400); Red Blood Cell Count 4.15 10^6/uL (4.20-5.40); Red Cell Dist. Width 15.6 % (11.5-14.5); White Blood Cell Count 6.6 10^3/uL (4.8-10.8)
[2025-01-28 08:16] VITALS: BP 101/59
--- NOTE | 2025-01-28 09:24 | W.PN.GS2 ---
Addendum entered and electronically signed by Kalyan Palacios MD 01/28/25 10:36:
I saw and examined the patient independently.
The Marketing Automation Manager's note was reviewed and I agree with the note, assessment and plan except where noted below.
Comment: This is a 24-year-old female with a history of thalassemia, Wilms tumor status post right nephrectomy through a large upper transverse incision as well as a lap to open Pfannenstiel incision for ovarian cysts who presents with abdominal
pain and recurrent small bowel obstructions now with return of bowel function.
Advance to a low residue diet.
If she tolerates her diet okay to DC per surgery, follow-up with us as needed.
Original Note:
Today's Communication / Plan
-
advance diet
Assessment / Plan
-
19 yo female with a h/o Thalassemia, Wilms tumor status post right nephrectomy through a large upper transverse incision, ovarian cysts managed with a lap to open procedure in 2018 who presents with abdominal pain, nausea and vomiting in the history
of prior small bowel obstructions found to have similar on her CT scan without oral contrast.
AFVSS
Anemia present, stable.
Passing some flatus
--Advance to LRD
--Ok for d/c later today from surgical standpoint if tolerating LRD
Subjective Data
-
Date of Service: January 28, 2025
Patient seen and examined at bedside with Dr. Palacios. Denies n/v. Tolerating clears. Passing flatus, no BM's yet. Denies pain.
Objective Data
-
Intake and Output
01/27/25 01/28/25 01/29/25
06:59 06:59 06:59
Intake Total 2300 / 2300 1220 / 1220
Balance 2300 / 2300 1220 / 1220
Intake:
Oral fluids 1220 / 1220
IV fluids (Total) 2300 / 2300
Other:
Number of approximated MODERATE 3 3
amounts of urine
Vital Signs
Temp Pulse Resp BP Pulse Ox
98.0 F 67 16 101/59 100
01/28/25 08:16 01/28/25 08:16 01/28/25 08:16 01/28/25 08:16 01/28/25 08:16
Lab Results
01/28/25 12:00
01/27/25 07:48
Calcium 8.8 mg/dl (8.4-10.2) D 01/27/25 07:48
Total Bilirubin 0.5 mg/dl (0.2-1.3) 01/27/25 07:48
AST 16 U/L (14-36) 01/27/25 07:48
ALT 10 U/L (0-35) 01/27/25 07:48
Alkaline Phosphatase 44 U/L (38-126) 01/27/25 07:48
Total Protein 5.6 g/dl (6.3-8.2) L D 01/27/25 07:48
Albumin 3.5 g/dl (3.5-5.0) D 01/27/25 07:48
Physical Exam
-
NAD
ABD soft, ND, NT
--- NOTE | 2025-01-28 10:15 | CM ---
Reviewed the chart notes. Patient's diet advanced to low residue. CM continues to be available to patient/family and is monitoring medical plan for needs at discharge.
Plan: Discharge to home when medically stable. No needs anticipated at this time.
--- NOTE | 2025-01-28 11:11 | W.PN.HOSP.TC ---
Addendum entered and electronically signed by Stuart Gates MD 01/29/25 14:33:
Suspect complete small bowel obstruction. Cannot specify further if secondary to adhesions
Addendum entered and electronically signed by Stuart Gates MD 01/28/25 13:48:
Tolerated diet; dc today
time of discharge 36 minutes
Original Note:
Today's Communication/Plan
-
Monitor vital signs see plan
Trial of low residue diet, if tolerates then discharge today
Surgery following
Assessment / Plan
Assessment / Plan
19yo F with thalassemia, Hx of R nephrectomy and partial R nephrotomy 2/2 Wilms tumor @2007, ovarian cyst removal in 2018 came with abdominal pain, nausea and vomiting for 1 day, found SBO on CT. later started to resolve, abdominal pain subsided,
but patient developed anemia
A/P:
#SBO
Appears to be resolving. Surgery disordered low residue diet, discussed with surgery and if patient tolerate then discharge today
General Surgery following
Antiemetics
#Thalassemia
#Acute anemia
Patient with no new or worsening abdominal tenderness, no periotenal signs, no c/o hematuria or blood in stool, black stools, not on her periods, no hemoptysis, normal bilirubin, no compensatory tachycaria and no hypotension
As per discussion with [facility] - reasonable to watch HGB, as can be 2/2 rehydration hemodilution
Obtain prior records from [facility]
Discussed with patient, she denies any bleeding. Does have diagnosis of thalassemia. Appears drop in hemoglobin could also be secondary from hemodilution. FOBT unsuccessful due to no bowel movement. Patient already has follow-up with hematology
at [facility]. He also has prescription for CBC check.
Hematology following
serial H&H
iron panel normal
#Intrahepatic biliary duct dilation
outpatient GI: wide differential from physiologic to PBC, PSC - needs outpatient w/u
#complex ovarian cyst
#Physiologic fluid in pelvis 2/2 ruptured luteal cyst
[employer] as outpatient, US advised
#Hypercalcemia
most likely dehydration 2/2 vomiting, resolved with IVF
check PTH
DVT ppx SCDs
Full code
General: No Apparent Distress
HEENT: Normocephalic and Other (pink conjuctiva)
Respiratory: Clear to Auscultation
Cardiac: Regular Rhythm
GI: Soft, Nontender, Nondistended and Normal Bowel Sounds
Musculoskeletal: No Clubbing, No Cyanosis and No Edema
Neuro: Awake, Alert, Oriented and AO x 3
Psych: Calm
Anticipated Discharge: Today
Subjective/Interval History
-
Date of Service: January 28, 2025
Denies pain
Objective Data
-
Labs:
Laboratory Results
01/28/25 01/28/25 01/28/25
04:00 05:27 12:00
WBC 6.6
Hgb Cancelled 8.6 L Cancelled
Hct Cancelled 27.3 L Cancelled
Plt Count 263
Vital Signs:
Vital Signs
Temp Pulse Resp BP Pulse Ox
98.0 F 67 16 101/59 100
01/28/25 08:16 01/28/25 08:16 01/28/25 08:16 01/28/25 08:16 01/28/25 10:20
I&O
01/27/25 01/28/25 01/29/25
06:59 06:59 06:59
Intake Total 2300 / 2300 1220 / 1220
Balance 2300 / 2300 1220 / 1220
--- NOTE | 2025-01-28 13:41 | W.DCSUMMARY ---
Discharge Summary
Discharge Data
Date of Admission: 01/26/25
Date of Discharge: 01/28/25
-
Pending Results: No
Hospital Course
19-year-old female with past medical history of thalassemia, history of right nephrectomy secondary Wilms tumor, ovarian cyst removal came to the hospital abdominal pain nausea and vomiting consistent with small bowel obstruction. Patient was seen
by surgery throughout hospitalization. Patient was manage conservatively with bowel rest and fluids. Over time her bowel obstruction continued to improve and she was able to tolerate diet prior to discharge. On this hospitalization patient
hemoglobin was also low which was appeared was possibly secondary to known thalassemia with mild iron deficiency and some hemodilution from fluids. Patient was seen by hematology and this hospitalization. Patient denied any pedro bleeding
throughout hospitalization. On discharge patient was instructed to get repeat CBC soon and to follow-up with her parking analyst at [facility] outpatient. Patient also had some intrahepatic biliary ductal dilation for which she was instructed to follow-up
with GI outpatient. For her ovarian cyst she will instructed to follow-up with gynecology outpatient. Once patient symptoms continue to improve and she was able to tolerate diet, she was then discharged home with instructions to follow-up with all
her physicians outpatient.
Discharge Plan
-
Patient Disposition: Home (Routine Discharge)
Discharge Diagnosis/Procedures: Small bowel obstruction
Thalassemia
Intrahepatic biliary ductal dilation
Complex ovarian cyst
Diet: Low Fiber
Additional Diets: Low fiber diet initially then begin adding back in fruits and vegetables slowly
Activity: As tolerated
Driving Restrictions: As prior to admission
Bathing Restrictions: None
Blood Work: CBC later this week with pcp
Others Tests: Pelvic/ovarian ultrasound with gynecology
Referrals:
Adilene Villar MD [Active, Gynecology]
Kalyan Palacios MD [Active, Surgical]
UNKNOWN - PT DOES,NOT KNOW [Family Provider, Internal Medicine] - in less than 1 week
Leilani Hughes, [Active, Gastroenterology]
Prescriptions:
No Action
No Current Medications
0
Discharge Orders:
Discharge Patient (As Directed); Ordered 01/28/25
Ordered By: Stuart Gates
Discharge Date and Time
Discharge Date/Time: 01/28/25 15:33
Print Language: ETHIOPIAN
[2025-01-28 15:22] VITALS: BP 120/70
--- NOTE | 2025-01-28 15:23 | PTCARENOTE ---
Patient discharged home. IV removed by this RN, vitals taken by this RN stable. Discharge instructions reviewed with patient and mother at bedside, both verbalized understanding; educational packet on low residue diet given to patient. Patient's
mother states she has paper script from MD for outpatient labwork. Printed copies of patient's CT scan and labs throughout admission given to patient and mother for outpatient follow ups with PCP and [employer]KER. Patient dressed and gathered belongings
independently in room, refused wheelchair/staff escort and walked down to car with family.
[2025-01-28 23:19] LABS: Haptoglobin 83 mg/dL (30-200)
[2025-01-29 10:20] LABS: Intact PTH 73.5 pg/ml (13.6-85.8)
--- NOTE | 2025-01-29 14:13 | PN.CDI ---
CDI
- -
CDI:
Physician Documentation Request
Admit Date: 01/26/25 09:25
Dear Doctor Kody,
Patient presented with small bowel obstruction.
CT impression states 'SMALL BOWEL OBSTRUCTION in the right lower quadrant of the abdomen with a transition point in the distal ileum'
Patient was managed nonsurgically and was able to tolerate diet.
Could you clarify in the progress notes the type of bowel obstruction
Partial
Complete
Other
Use of terms such as suspected, likely, concern for, or probable (associated with a specific diagnosis that is being evaluated, monitored, or treated as if it exists) are acceptable and can be coded in the inpatient setting, when documented at the
time of discharge.
Thank you,
Eileen Haney RN, BSN
CDI Specialist
tiger text
Please use your independent medical judgment in providing your response.
--- NOTE | 2025-01-29 14:17 | PN.CDI ---
CDI
- -
CDI:
Physician Documentation Request
Admit Date: 01/26/25 09:25
Dear Doctor Kody
Patient was admitted with small bowel obstruction.
History of right nephrectomy in 2004 and complex ovarian cyst managed operatively with lap to open procedure in 2018.
Per hematology note patient was admitted to hospital of 09/2024 'with SBO, thought to be secondary to adhesions/scaring'
01/26 CT impression states 'SMALL BOWEL OBSTRUCTION in the right lower quadrant of the abdomen with a transition point in the distal ileum (probably an obstructing adhesive band).'
Could you please clarify the etiology of the current small bowel obstruction:
small bowel obstruction due to adhesions
small bowel obstruction due to (please specify)
Other
Use of terms such as suspected, likely, concern for, or probable (associated with a specific diagnosis that is being evaluated, monitored, or treated as if it exists) are acceptable and can be coded in the inpatient setting, when documented at the
time of discharge.
Thank you,
Eileen Haney RN, BSN
CDI Specialist
tiger text
Please use your independent medical judgment in providing your response.
== END 2025-01-28 15:33 | disposition home or self-care (01) | DRG 390 ==
LOC: 2 NORTH 09:25
PROVIDERS: Nurse Practitioner Family; ADMITTING PHYSICIAN Internal Medicine; ATTENDING PHYSICIAN Internal Medicine; CONSULT PHYSICIAN Internal Medicine Hematology & Oncology; CONSULT PHYSICIAN Surgery; EMERGENCY PHYSICIAN Emergency Medicine
DX: K56.50 Intestinal adhesions [bands], unspecified as to partial versus complete obstruction (principal); D56.3 Thalassemia minor; N83.12 Corpus luteum cyst of left ovary; K83.8 Other specified diseases of biliary tract; E83.52 Hypercalcemia; E86.0 Dehydration; D50.9 Iron deficiency anemia, unspecified; N83.201 Unspecified ovarian cyst, right side; Z90.5 Acquired absence of kidney; Z85.528 Personal history of other malignant neoplasm of kidney; Z88.8 Allergy status to other drugs, medicaments and biological substances; Z91.048 Other nonmedicinal substance allergy status; Z92.21 Personal history of antineoplastic chemotherapy; Z92.3 Personal history of irradiation; Z83.2 Family history of diseases of the blood and blood-forming organs and certain disorders involving the immune mechanism; Z84.81 Family history of carrier of genetic disease
CPT/HCPCS: 74177; 80053; 81003; 81015; 82330; 82607; 82728; 82746; 83010; 83540; 83550; 83615; 83690; 83970; 84703; 85014; 85018; 85025; 85045; 86850; 86900; 86901; 87015; 87207; 96374; 96375; 96376; 99285; Q9967

== ENCOUNTER → 2025-05-03 08:38 | Outpatient (REF) | payer BC, OTHER, SELFPAY | LOC: MRI 3T 08:38 | PROVIDERS: ATTENDING PHYSICIAN Internal Medicine | DX: K83.8 Other specified diseases of biliary tract (principal) | CPT/HCPCS: 74183; A9575 ==